=== PATIENT | female | born 1970 | race Caucasian/White ===

== ENCOUNTER → 2018-11-25 | Outpatient (CLI) | payer BC ==
[~2018-11-25] MED LIST: AMBIEN 5MG TABLE5 MG PO; CELEXA 20MG20 MG/TAB PO; LOESTRIN 24 FE1 TAB PO; NORCO 325 MG-51 TAB PO; ZITHROMAX Z PA250 MG PO
== END ==
LOC: COL.RAD 08:03
DX: S46.812A Strain of other muscles, fascia and tendons at shoulder and upper arm level, left arm, initial encounter (principal); M75.102 Unspecified rotator cuff tear or rupture of left shoulder, not specified as traumatic; M19.012 Primary osteoarthritis, left shoulder

== ENCOUNTER → 2019-12-06 | Outpatient (CLI) | payer BC | LOC: MC.RAD 11:13 | DX: Z12.31 Encounter for screening mammogram for malignant neoplasm of breast (principal) ==